=== PATIENT | male | born 1950 | race Caucasian/White ===

== ENCOUNTER 2018-03-20 12:34 | Day surgery (SDC) | payer MEDICARE, OTHER, SELFPAY ==
[2018-03-15 09:33] VITALS: BMI 22.9
[2018-03-20 13:55] VITALS: BP 144/81; PULSE 63; RESP 15; TEMP 36.3; O2SAT 100
[2018-03-20] MEDS: LACTATED RINGERS 1,000 ML 42 ML IV (14:05)
--- NOTE | 2018-03-20 14:55 | PM.HP.1 ---
History of Present Illness Date Patient Seen: 03/20/18 Time Patient Seen: 14:55 Chief complaint: [id number] LEFT INGUINAL HERNIA REPAIR Narrative: Theo is a wonderful 68-year-old gentleman who presents today for left inguinal hernia repair. He reports he had his right repaired many years ago and has not bothered him but he has developed a left 1 in the last several months. It has not caused a lot of pain but he has noticed it is getting significantly bigger over time. Patient History Medical History Arthritis (Acute) Surgical History Hx of right inguinal hernia repair (Acute) Family & Social History Family History: Reviewed 03/20/18 by Kayli Alvarado MD Social History: household members spouse Tobacco & Substance use: Smoking Status Never smoker alcohol intake never Substance Use Type does not use Meds Home Medications Medication Instructions Recorded Confirmed Type No Known Home Medications 03/15/18 03/15/18 History Allergies Allergy/AdvReac Type Severity Reaction Status Date / Time No Known Drug Allergies Allergy Verified 03/15/18 09:37 Review of Systems Review of Systems All systems reviewed & are unremarkable except as noted in HPI and below Exam Vital Signs (past 8 hours): - 03/20/18 13:55 Temperature 97.3 F L Pulse Rate 63 Respiratory Rate 15 Blood Pressure 144/81 H Pulse Oximetry 100 Oxygen Delivery Method Room Air Narrative Exam Narrative: HEENT: Normocephalic and atraumatic, pupils equal round reactive to light accommodation with anicteric sclera Lungs: Clear to auscultation bilaterally Heart: Regular rate and rhythm without murmur rub or gallop Abdomen: Soft, nontender, active bowel sounds. There is a visible palpable and spontaneously reducing left inguinal hernia. Testicles are descended bilaterally. No adenopathy. Extremities: Warm and well perfused without edema Assessment & Plan Plan: Assessment/Plan Narrative: Very pleasant and healthy gentleman with a left inguinal hernia which is enlarging. We discussed risks and benefits of left inguinal hernia repair the patient expressed a desire to complete the procedure.
[2018-03-20] MEDS: CEFAZOLIN 2 GM/100 ML FROZ.PIGGY IV (15:09)
--- NOTE | 2018-03-20 15:12 | SUR.OPER ---
Supine on padded OR bed, head on pillow, arms secured on padded arm boards at <90 degrees abduction, legs uncrossed, safety belt at thigh, tape over blanket over lower legs.
[2018-03-20] MEDS: LIDOCAINE 1% W/EPI INJ 20 ML INJ (15:16)
[2018-03-20] MEDS: BUPIVACAINE 0.5% (PF) VIAL 30 ML INJ (15:17)
[2018-03-20] MEDS: CEFAZOLIN 1 GM VIAL IV (15:31)
--- NOTE | 2018-03-20 15:52 | P.OP_ITS ---
Operative Date/Time/Diagnoses Date of procedure: 03/20/18 Time of procedure: 15:47 Pre-op diagnosis: Left inguinal hernia Post-op diagnosis: same Procedure & Clinicians Procedure: Left inguinal hernia repair Same procedure as scheduled: Yes Indications: Large left inguinal hernia Surgeon: Kayli Alvarado Anesthesia Type: General (Dr. Becerra) Operative Notes Findings: Large pantaloon left inguinal hernia Closure Type: primary Implants & Drains: Large PHS mesh implant Estimated Blood Loss (mL): 5 Procedure in detail: After obtaining informed consent the patient was brought to the operating room and placed in the supine position on the operating table. Following successful induction of general endotracheal anesthesia, appropriate padding of all bony prominences, and a placement of appropriate monitors, the left groin is prepped and draped in a standard surgical fashion. A timeout was held per protocol.We began the procedure by infiltrating a mixture of local anesthetics medial to the anterior superior iliac spine on the left. Following this, an incision was fashioned in the left groin superior and lateral to the left pubic tubercle. This area was infiltrated with local anesthetic to create a field block. A skin incision was created here and carried down through the skin and subcutaneous tissue to reveal Tyra's fascia below. Tyra's fascia was divided sharply revealing the external oblique aponeurosis below. More local anesthetic was infiltrated in the aponeurosis and it was opened in the direction of its fibers. The spermatic cord and its contents were surrounded and retracted gently using a [place] drain. The hernia sac was identified in the superior medial position and carefully dissected free from the cord structures. A large lipoma was identified coming through the internal inguinal ring and a hernia sac identified coming directly through Hesselbach's triangle medial to the inferior epigastric artery and vein. The lipoma was placed back in the abdominal cavity. The floor of the inguinal canal was explored to be sure there would be adequate space for the posterior mesh layer. A large of PHS mesh was chosen for the repair. It was soaked in Ancef solution and deployed into the direct opening as this was the larger component. It was flattened in the posterior space to be sure that both the internal and external rings would be addressed. An opening was created in the medial aspect of the anterior leaflet for placement of the spermatic cord. An air knot was used to close the mesh lateral to the cord once it had been gently laid across the surface. The anterior leaflet was then tacked to the pubic tubercle medially. The wound was checked for hemostasis and irrigated with Ancef-containing solution. The edges of the external oblique aponeurosis were approximated and closed with a running Vicryl suture. The wound was irrigated once again and Tyra's fascia was closed with a running suture. Monocryl sutures were placed in the skin. All sponge, needle, and instrument counts were correct at the conclusion of the case. The patient was allowed to awaken from anesthesia without difficulty and taken to the post anesthesia care unit in good condition. Complications: none Condition: stable Disposition: PACU Plan for aftercare: 1. Discharge to home 2. Follow up with me in 2-3 weeks in my office
[2018-03-20 15:53] VITALS: BP 110/66; PULSE 69; RESP 8; TEMP 36.6; O2SAT 97
[2018-03-20 15:56] VITALS: BP 99/57; PULSE 75; RESP 13; O2SAT 97
[2018-03-20 15:59] VITALS: BP 120/73; PULSE 75; RESP 16; TEMP 36.3; O2SAT 98
[2018-03-20 16:14] VITALS: BP 111/53; PULSE 74; RESP 12; TEMP 36.8; O2SAT 99
== END 2018-03-20 16:33 | disposition home or self-care (01) ==
PROVIDERS: PCP Family Medicine; Visit Provider Surgery
PROC: (CPT 49505; principal; 2018-03-20 15:00)
DX: K40.90 Unilateral inguinal hernia, without obstruction or gangrene, not specified as recurrent (principal)
CPT/HCPCS: 49505; C1781; J0690; J1100; J2250; J2405; J2704; J3010